=== PATIENT | female | born 1960 | race Caucasian/White ===

== ENCOUNTER 2018-01-30 12:27 | Emergency (ER) | payer BC ==
[2018-01-30 12:51] VITALS: BP 123/63; PULSE 69; RESP 18; TEMP 97.8
[2018-01-30] MEDS ORDERED: ACETAMINOPHEN TAB 500 MG TAB PO STA (13:10)
[2018-01-30] MEDS ORDERED: ONDANSETRON ODT 4 MG TAB PO STA (13:10)
--- NOTE | 2018-01-30 13:14 | ED ---
Head Injury HPI - General Chief complaint: Head Injury Stated complaint: Hit in head by tree Time Seen by Provider: 01/30/18 13:00 Source: patient Mode of arrival: ambulatory Limitations: no limitations - History of Present Illness Initial comments: This is a 57-year-old female who presents emergency department after head trauma. She states that she was cutting down a tree when a branch snapped back and hit her in the 4 head. She then had 2 other branches come down and land directly on the top of her head. She states that it knocked her down onto her buttock. She states that she felt a crunching sensation in her neck and upper back. She denies any associated weakness or numbness in her extremities. She states that since that time she has felt a mild headache behind the left eye and also some nausea. She was able to ambulate after the accident and was ambulatory in the emergency department. She denies any other injuries except for her left hand. She states that she is unsure exactly what happened to it however she noticed a bruise on the dorsal aspect of the left hand. She states that she can move all fingers and has no numbness or tingling in her fingertips. She denies any anticoagulant use your does not take an aspirin daily. No other acute complaints. - Related Data Home Medications Medication Instructions Recorded Confirmed Levothyroxine Sodium [Synthroid] 125 mcg PO DAILY 01/30/18 01/30/18 Multivitamins, Thera [Multivitamin 1 tab PO HS 01/30/18 01/30/18 (formulary)] Spironolactone [Aldactone] 25 mg PO DAILY 01/30/18 01/30/18 Allergies/Adverse reactions: Allergies Allergy/AdvReac Type Severity Reaction Status Date / Time codeine Allergy Rash/Hives Verified 01/30/18 13:01 Penicillins Allergy Itching Verified 01/30/18 13:01 Review of Systems ROS Statement: Those systems with pertinent positive or pertinent negative responses have been documented in the HPI. ROS Other: All systems not noted in ROS Statement are negative. Past Medical History Past Medical History: Thyroid Disorder Additional Past Medical History / Comment(s): hashimotos History of Any Multi-Drug Resistant Organisms: None Reported Past Surgical History: Ear Surgery, Orthopedic Surgery Past Psychological History: No Psychological Hx Reported Smoking Status: Never smoker Past Alcohol Use History: Occasional Past Drug Use History: None Reported General Exam - General Exam Comments Initial Comments: Constitutional: Awake alert Appears comfortable Head: Normocephalic atraumatic Eyes: no conjunctival injection No scleral icterus EOMI, pupils are 4 mm reactive bilaterally Neck: No JVD Supple Heart: Regular rate rhythm normal S1-S2 no murmurs Lungs: Clear to auscultation bilaterally No wheezing No rales Abdomen: Soft nondistended nontender Extremities: Non edematous DP pulses intact Radial pulses intact, there is an area of ecchymosis over the dorsum of the third and fourth metacarpal of the left hand. Neurovascularly intact distally, no deformities Neuro: A&Ox3, CN 2 through 12 are grossly intact, 5 out of 5 strength in upper and lower extremities bilaterally, sensation intact in all extremities, no ataxia No focal neurologic deficits Psych: Appropriate mood and affect Limitations: no limitations Course Vital Signs 01/30/18 12:47 Temperature 97.8 F Pulse Rate 69 Respiratory 18 Rate Blood Pressure 123/63 O2 Sat by Pulse 100 Oximetry Medical Decision Making - Medical Decision Making Is a 57-year-old female who presents emergency Department after getting hit in the head with a tree branch. The patient had computed tomography scan performed that did not show any acute intracranial process. She has arthritis of the cervical spine and also of her hand. There is no evidence for fracture. The patient felt improved after medications in the department. She was updated on concussion and the typical protocol. Updated her regarding return precautions. Told to take Motrin and Tylenol as needed for pain. Ice as needed. Return emergency Department if any worsening or changing symptoms. All questions answered. Disposition Clinical Impression: Headache due to trauma, Hand contusion, Cervical arthritis Disposition: HOME SELF-CARE Condition: Stable Instructions: Concussion (ED) Is patient prescribed a controlled substance at d/c from ED?: No Referrals: Alisa Christianson DO [Primary Care Provider] - 1-2 days
--- NOTE | 2018-01-30 13:47 | CT ---
EXAMINATION TYPE: CT brain wo con DATE OF EXAM: 01/30/2018 COMPARISON: NONE HISTORY: Head trauma and nausea CT DLP: 1159 mGycm Automated exposure control for dose reduction was used. FINDINGS: Changes of chronic mastoiditis noted. Ventricular system is midline. No mass effect or acute hemorrhage. Calvarium intact. IMPRESSION: NO ACUTE HEMORRHAGE OR MASS EFFECT. IF SYMPTOMS PERSIST CONSIDER MRI.
--- NOTE | 2018-01-30 13:59 | XR ---
Cervical spine HISTORY: Trauma and pain 5 views of the cervical spine Mild foraminal encroachment present at C3-4, C5-6 and C6-7 on the right, left-sided foramina not well evaluated at the lower aspect. Cervical vertebral bodies show preserved height. There is reversal th e normal cervical lordosis. Loss of disc height present at C4-5, C5-6 and C6-7. There is associated s pondylosis. Prevertebral soft tissues are normal. Suspect a spinal curvature. IMPRESSION: Degenerative disc disease. No acute fracture or subluxation.
--- NOTE | 2018-01-30 13:59 | XR ---
EXAMINATION TYPE: XR hand complete LT DATE OF EXAM: 01/30/2018 COMPARISON: NONE HISTORY: Pain TECHNIQUE: Three views are submitted. FINDINGS: There is arthropathy of all MCP and PIP and DIP joints with the most marked findings involving the th ird DIP, PIP and MCP joint. Postsurgical changes are noted. No acute fracture. No dislocation. IMPRESSION: 1. Arthropathy with no definite acute fracture or dislocation.
--- NOTE | 2018-01-30 14:02 | XR ---
EXAMINATION TYPE: XR thoracic spine complete DATE OF EXAM: 01/30/2018 COMPARISON: NONE HISTORY: Pain Alignment is anatomic. There is no compression deformities. Vertebral body height and disc interspa landry are maintained. Mild hypertrophic changes. No compression deformities. IMPRESSION: 1. No acute abnormality.
== END 2018-01-30 14:23 | disposition home or self-care (01) ==
LOC: EC 12:27
DX: S60.222A Contusion of left hand, initial encounter (principal); S09.90XA Unspecified injury of head, initial encounter; M46.92 Unspecified inflammatory spondylopathy, cervical region; E07.9 Disorder of thyroid, unspecified; Z79.899 Other long term (current) drug therapy; Z88.0 Allergy status to penicillin; Z88.5 Allergy status to narcotic agent; W22.8XXA Striking against or struck by other objects, initial encounter; Y92.89 Other specified places as the place of occurrence of the external cause
CPT/HCPCS: 70450; 72050; 72072; 99284

== ENCOUNTER → 2024-09-18 | Outpatient (CLI) | payer MEDICARE ==
--- NOTE | 2024-09-18 09:16 | US ---
EXAMINATION TYPE: US abdomen complete DATE OF EXAM: 09/18/2024 COMPARISON: NONE CLINICAL INDICATION: Female, 63 years old with history of R10.84 Abdominal pain; RUQ pain TECHNIQUE: Grayscale and color Doppler imaging of the abdomen was performed. FINDINGS: EXAM MEASUREMENTS: Liver Length: 16.3 cm Gallbladder Wall: .2 cm CBD: .2 cm, color Doppler imaging was utilized to isolate the common bile duct for measurement. Spleen: 10.3 cm Right Kidney: 10.6 x 4.3 x 4.9 cm Left Kidney: 7.4 x 4.2 x 2.8 cm [employer] SERVICE [employer]IST NOTES: Pancreas: Tail obscured by overlying bowel gas Liver: wnl Gallbladder: No stones seen Evidence for sonographic Nolen's sign: no CBD: wnl Spleen: wnl Right Kidney: Dilated renal pelvis 2.7 x 1.3 cm Left Kidney: Limited due to bowel gas dilated renal pelvis 1.5 cm Upper IVC: wnl Abd Aorta: wnl The liver is homogenous. The intrahepatic portion of the IVC and proximal abdominal aorta are within normal limits. There is no evidence of cholelithiasis. Common bile duct is unremarkable. The visu alized portions of the pancreas are homogenous. The spleen is unremarkable. Kidneys are symmetric a nd free of hydronephrosis. Dilated bilateral renal pelvises. No renal lesions are seen. IMPRESSION: 1. No ultrasound evidence for acute process. 2. No hydronephrosis with bilateral dilated renal pelvises. [facility], , 09/18/2024 9:14 AM
== END | disposition home or self-care (01) ==
LOC: RADUSWWP 07:14
PROVIDERS: ATTEND Family Medicine
DX: R10.84 Generalized abdominal pain (principal); R10.11 Right upper quadrant pain
CPT/HCPCS: 76700

== ENCOUNTER → 2024-12-07 | Outpatient (CLI) | payer MEDICARE ==
--- NOTE | 2024-12-07 18:32 | CT ---
EXAMINATION TYPE: CT sinus wo con DATE OF EXAM: 12/07/2024 10:13 AM COMPARISON: 01/30/2018. CLINICAL INDICATION: Female, 63 years old with history of J01.90 ACUTE SINUSITIS, UNSPECIFIED SINUSIT IS TECHNIQUE: Multiple thin axial images were obtained through the paranasal sinuses without the use of IV contrast. Additional coronal and sagittal reformatted images were submitted for evaluation. Contrast used: none Oral contrast used: none CT DLP: 489.6 mGycm, Automated exposure control for dose reduction was used. FINDINGS: Frontal sinuses: Normally developed with scattered mild mucosal thickening. Frontal Recess: Clear Maxillary Sinuses: Normally developed and aerated. Maxillary Infundibula([facility]): clear, No Jassi cells identified. Ethmoid sinuses: Normally developed and aerated. Ethmoidal notch: Unprotected bilateral anterior ethm oidal arteries. Sphenoid sinuses: Normally developed and aerated. There is sellar sphenoid sinus pneumatization witho ut evidence of dehiscence. No dehiscence of carotid canal. No evidence of optic nerve dehiscence wit hin the sphenoid sinus. No evidence of Onodi cells. Sphenoethmoidal recesses: Clear. Nasal septum: Slightly deviated rightward mucosal thickening between the middle and inferior turbinat es. Nasal Turbinates: Within normal limits. Mastoid air cells & middle ears: The air cells are clear. The middle ears are grossly unremarkable. T here may be prior surgical changes of the mastoid air cells identified correlate with history. Modified Soft tissues & Brain: Partially seen without gross abnormality. Globes are intact. Other: Cribriform plate demonstrates symmetric Keros classification type 2 cribriform plate. No evidence of bony dehiscence of skull base. Lamina papyracea is intact without evidence of remote orbital fracture or orbital prolapse into the e thmoid sinus. IMPRESSION: 1. Minimal to mild paranasal sinus disease. 2. The ostiomeatal units, frontonasal and sphenoethmoidal recesses are clear. 3. Suspected postsurgical changes the mastoid air cells correlate with history. [facility], , 12/07/2024 6:29 PM
== END | disposition home or self-care (01) ==
LOC: RADCTMAIN 09:11
PROVIDERS: ATTEND Family Medicine
DX: J01.90 Acute sinusitis, unspecified (principal); J34.2 Deviated nasal septum; J34.89 Other specified disorders of nose and nasal sinuses
CPT/HCPCS: 70486